=== PATIENT | female | born 1955 | race Caucasian/White ===

== ENCOUNTER → 2016-07-28 | Outpatient (CLI) | payer BC, OTHER ==
[~2016-07-28] MED LIST: ASPCH81X PO; B-COTAB18 PO; CALC-51 PO; CHROMIUM PO; LEVO75TA5 PO; MISCCAP80 PO; MISCTAB26 PO; OMEGCAP2 PO; SELE1TAB5 PO; TURM1CAP4 PO; UBIQ1CAP2 PO; VITA1CAP9 PO; ZINC1CAP PO
--- NOTE | 2016-07-28 13:36 | DIAGNOSTIC IMAGING REPORT ---
RIGHT WRIST 3 VIEWS HISTORY: RIGHT WRIST PAIN Right COMPARISON: Right wrist 03/31/2016. FINDINGS: There is no fracture or dislocation. Mild soft tissue swelling within the right wrist. Mild cartilage space narrowing at the radiocarpal joint. No radiopaque foreign bodies. The bones are slightly osteopenic. IMPRESSION: No fractures. Mild soft tissue swelling. Electronically signed by: Marco Mendieta M.D. 07/28/2016 1:34 PM Dictated Date/Time: 07/28/2016 1:33 PM
== END | disposition home or self-care (01) ==
LOC: C.RDSM 13:09
PROVIDERS: ATTEND Physician Assistant
DX: M25.531 Pain in right wrist (principal)

== ENCOUNTER → 2016-08-11 | Day surgery (SDC) | payer OTHER ==
[2016-07-30 08:27] VITALS: Ht 162.6 cm; Wt 66.4 kg
[~2016-08-11] VITALS: Ht 162.6 cm; Wt 66.4 kg
[~2016-08-11] MED LIST changes: +BUPIVACAINE 0.5 % 5 MG/1 ML MPF 30ML VIAL ONE; +CEFAZOLIN 2000 MG/60 ML D5W IV SCH; +FENTANYL CITRATE INJ 50 MCG/1 ML 2 ML VIAL ONE; +LACTATED RINGER'S 1000ML 1,000 ML IV SCH; +LIDOCAINE HCL 2% 2 ML VIAL (20MG/ML) ONE; +LIDOCAINE HCL 2% LOCAL 20 ML VIAL ONE; +MIDAZOLAM HCL 1 MG/ML 2ML VIAL ONE; +PROPOFOL IV EMULSION 10 MG/ML 20 ML VIAL IV ONE; +SODIUM CHLORIDE 0.9% 1000ML 1,000 ML IV SCH
--- NOTE | 2016-08-11 06:31 | History & Physical Bridge Note ---
H&P Re-Evaluation Bridge Note: I have examined the patient, reviewed the History & Physical and in the interval since the performance of the History & Physical I have noted the following changes of clinical significance: No changes noted
--- NOTE | 2016-08-11 06:32 | Discharge Instructions ---
Discharge Instructions Date of Service August 11, 2016. Visit Reason for Visit: Right Wrist Dequervain's Tenosynovitis Discharge Discharge Diagnosis / Problem: same Discharge Goals Goal(s): Decrease discomfort, Improve function Medications Stopped Medications Name(s): herbals Restart Stopped Medication(s): resume all meds Activity Recommendations Activity Limitations: as noted below Lifting Limitations: until after follow-up appointment Exercise/Sports Limitations: until after follow-up appointment May Resume Sexual Activity: when tolerated Shower/Bathe: keep incision dry Driving or Machine Use: no limitations Anesthesia . Post Anesthesia Instructions: If you have had General Anesthesia or IV Sedation: * Do not drive today. * Resume driving when surgeon permits. * Do not make important decisions or sign legal documents today. * Call surgeon for: 1. Temperature elevations greater than 101 degrees F. 2. Uncontrollable pain. 3. Excessive bleeding. 4. Persistent nausea and vomiting. 5. Medication intolerance (nausea, vomiting or rash). * For nausea and vomiting use only clear liquids such as: tea, soda, bouillon until nausea subsides, then gradually increase diet as tolerated. * If you have any concerns or questions, call your surgeon's office. If physician is unavailable and it is an emergency, call 911 or go to the nearest emergency room. . Diet Recommendations Recommended Home Diet: resume previous diet Procedures Procedures Performed: 1st dorsal compartment release Pending Studies Studies pending at discharge: no Medical Emergencies . Who to Call and When: Medical Emergencies: If at any time you feel your situation is an emergency, please call 911 immediately. . Non-Emergent Contact Non-Emergency issues call your: Specialist Call Non-Emergent contact if: temperature is above 101.5, wound has increased drainage, wound has increased redness, wound has increased pain . . "Provider Documentation" section prepared by Gerald Gomez. .
--- NOTE | 2016-08-11 07:30 | [facility] Post Operative Brief Note ---
Immediate Operative Summary Operative Date August 11, 2016. Pre-Operative Diagnosis Right Wrist Dequervain's Tenosynovitis Post-Operative Diagnosis Same Procedure(s) Performed Right Wrist Dorsal Compartmen Open Release Surgeon Dr Gomez Gallery Intern Surgeon(s) Dr Jessica Encinas Estimated Blood Loss Trace Findings severe entrapment with tenosynovitis and tendon swelling Fluids (cc crystalloids) 300cc Specimens None Drains none Anesthesia local/sedation Complication(s) None Disposition Recovery Room / PACU
[2016-08-11 07:32] VITALS: TEMP 36.6
[2016-08-11 08:10] VITALS: BP 144/83; PULSE 57; O2SAT 100
--- NOTE | 2016-08-11 08:12 | Anesthesia Progress Nt - [facility] ---
Anesthesia Post Op Note Date & Time August 11, 2016 at 08:12 Vital Signs Pain Intensity: 0 Vital Signs Past 12 Hours Date Time Temp Pulse Resp B/P Pulse Ox O2 Delivery O2 Flow Rate FiO2 08/11/16 08:10 57 16 144/83 100 Room Air 08/11/16 07:32 36.6 57 16 121/74 96 Room Air 08/11/16 06:31 36.5 63 16 175/83 99 Room Air Notes Mental Status: alert / awake / arousable, participated in evaluation Pt Amnestic to Procedure: Yes Nausea / Vomiting: adequately controlled Pain: adequately controlled Airway Patency, RR, SpO2: stable & adequate BP & HR: stable & adequate Hydration State: stable & adequate Anesthetic Complications: no major complications apparent
--- NOTE | 2016-08-11 08:37 | OPERATIVE REPORT ---
DATE OF OPERATION: 08/11/2016 SURGEON: Gerald Gomez MD MOTOR POWER CONNECTOR: Dr. Lopez PREOPERATIVE DIAGNOSIS: First dorsal compartment entrapment syndrome. POSTOPERATIVE DIAGNOSIS: Same. OPERATION PERFORMED: First dorsal compartment release, debridement and tenosynovectomy. PERIOPERATIVE SITUATION: Medically cleared female with intractable wrist pain documented by physical exam, symptoms and x-ray consistent with the above diagnosis of first dorsal compartment extensive tenosynovitis, entrapment syndrome. OPERATION: The patient appropriately identified, site verified, consent verified, 2 grams of Ancef confirmed as being given. The right upper extremity was blocked with 3 mL of 0.5% plain Marcaine and 3 mL of 2% plain lidocaine. The arm was then prepped and draped in the usual routine fashion. Tourniquet inflated to 250 mmHg after exsanguination of limb with a rubber Esmarch bandage for a total of 15 minutes. A linear incision was made over the first dorsal compartment, skin scratch was made and blunt dissection down to the fascia. This was then incised under direct vision. The fascia was very thickened over the first dorsal compartment. There was tenosynovial thickening and fluid incorporation into the first compartment was all debrided. There were multiple compartments and multiple tendons; these were all released. Once this was done, it was noted that there was some mucoid degeneration along the tendon; this was debrided as well, this was the abductor tendon. The wound was then irrigated and closed with subcuticular 3-0 nylon, then appropriate Dermabond and dressing in splint. The patient was transferred to the holding area in satisfactory condition having tolerated the procedure well. ESTIMATED BLOOD LOSS: Trace. CRYSTALLOID: 300 mL. No DVT prophylaxis required. I attest to the content of the Intraoperative Record and any orders documented therein. Any exceptions are noted below. MTDD
== END | disposition home or self-care (01) ==
LOC: X.SURG 06:17
PROVIDERS: ATTEND Physical Medicine & Rehabilitation Sports Medicine
DX: M65.831 Other synovitis and tenosynovitis, right forearm (principal); E03.9 Hypothyroidism, unspecified; E78.5 Hyperlipidemia, unspecified; Z79.82 Long term (current) use of aspirin; Z90.49 Acquired absence of other specified parts of digestive tract; Z86.73 Personal history of transient ischemic attack (TIA), and cerebral infarction without residual deficits; Z82.49 Family history of ischemic heart disease and other diseases of the circulatory system; Z80.7 Family history of other malignant neoplasms of lymphoid, hematopoietic and related tissues; Z80.3 Family history of malignant neoplasm of breast; Z83.3 Family history of diabetes mellitus